=== PATIENT | male | born 1965 | race Caucasian/White ===

== ENCOUNTER 2024-04-12 10:25 | Inpatient (IN) ==
--- NOTE | 2024-04-12 10:59 | XRay Report ---
XR chest 1V portable CLINICAL HISTORY: Sepsis COMPARISON STUDY: No previous studies for comparison. FINDINGS: Lung volumes are normal. Lungs are clear. There is no pneumothorax or pleural effusion. Car diac size is at the upper limits of normal. Mediastinal contours are normal. There is no evidence for pulmonary edema. IMPRESSION: No acute cardiopulmonary findings. ACT 112: Negative or not required by law. Electronically signed by: Agus Nieves M.D. 04/12/2024 10:58 AM
--- NOTE | 2024-04-12 11:12 | Emergency Department Note ---
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 His symptoms initially started in the middle of February. He was having night sweats at that time. Symptoms have abated in regards to night sweats after taking 10 days of doxycycline. He was called in additional prescription of 14 days of doxycycline as he was called by our ER after the results of his testing which showed +Q fever. He took a total of 7 days of this new prescription. He notes he is very weak and worn down. No swollen joints. No headaches or change in vision. Admits to pain all over and this is worse over the past several days. Pain in the joints are generally worse at night. Denies any dysuria, urgency, or frequency. No cough or congestion. No belly pain. No other exacerbating or remitting factors. ADDITIONAL HISTORY OBTAINED: Per HPI Chronic Medical/Social Conditions Affecting Care: Per HPI PAST MEDICAL HISTORY:See Below PAST SURGICAL HISTORY:See Below FAMILY HISTORY:See Below SOCIAL HISTORY:See Below HOME MEDICATIONS:See Below ALLERGIES:See Below VITALS:See Below PHYSICAL EXAMINATION: GENERAL: Sitting up in bed, alert, well appearing, well nourished, no distress, non-toxic EYE EXAM: normal conjunctiva. PERRL and EOM's grossly intact. OROPHARYNX: no exudate, no erythema, lips, buccal mucosa, and tongue normal and mucous membranes are moist NECK: supple, no nuchal rigidity, no adenopathy, non-tender LUNGS: Clear to auscultation. Normal chest wall mechanics HEART: no murmurs, S1 normal and S2 normal ABDOMEN: abdomen soft, non-tender, normo-active bowel sounds, no masses, no rebound or guarding. BACK: Back is symmetrical on inspection and there is no deformity, no midline tenderness, no CVA tenderness. SKIN: no rashes and no bruising UPPER EXTREMITIES: upper extremities are grossly normal. LOWER EXTREMITIES: No pitting edema. NEURO EXAM: Normal sensorium, cranial nerves II-XII grossly intact, normal speech, no gross weakness of arms, no gross weakness of legs. No drift. Finger to nose intact. Gross sensation intact. MEDICAL DECISION MAKING: Patient is a 58-year-old male who presents ER for above-stated complaint. 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 IV was established blood work is obtained. Labs show mild leukocytosis 11.6 thousand. No significant anemia. BMP normal LFTs bilirubin is unremarkable. Lactic acid was 1.9. Troponin was negative. [place] normal. UA clean. Consulted with infectious disease and they did agree with admission and holding on antibiotics still to do a formal consult. I spoke with the [facility] infectious disease service. Patient was given a dose of Bactrim while here in the ER. He was updated bedside. He was discussed with the hospitalist for further evaluation management treatment. Consults/Care Managements Discussions: Per [facility] Triage Nursing notes reviewed. Limited review of prior medical records performed Vital Signs: reviewed and remarkable for no significant abnormalities Differential diagnosis: Differential diagnosis includes etiologies such as sepsis, UTI, pneumonia, metabolic, electrolyte abnormalities, cardiac sources, intracerebral event, toxicologic, neurological, as well as others were entertained. ER treatment provided: See below Diagnostics interpreted by me include EKG and cardiac monitoring as listed below: -Cardiac Monitoring: An order was placed for continuous cardiac monitoring. The monitor shows a rate of 101 with sinus rhythm. -ECG: Sinus tachycardia rate of 111 Normal axis No PVCs QTc 462 -Laboratory studies:Interpreted by me as stated above in MDM and shown below. Imaging studies: Xrays: As interpreted by me: Portable AP upright 1 view of the chest shows no focal infiltrate CTs show: none Procedures:none Critical Care: None Past Med/Surg History Problem List (Updated 04/12/24 @ 14:29 by Miah Dowling DO) Arthralgia (Acute) Myalgia (Acute) Atrial tachycardia (Acute) Edema Q fever (Acute) Social History Smoking Status: Never smoker Feels Safe at Home: Yes Allergies Allergies Allergy/AdvReac Type Severity Reaction Status Date / Time No Known Allergies Allergy Unknown Verified 04/12/24 13:31 Home Meds Home Medications Medication Instructions Recorded Confirmed multivitamin 1 tab PO DAILY #0 tabs 09/30/12 04/12/24 Previous Rx's Medication Instructions Recorded doxycycline hyclate 100 mg capsule 100 mg PO BID 14 days #28 caps 04/05/24 Results & Data (ED) Vital Signs Vital Signs - 24 hr 04/12/24 10:31 04/12/24 10:58 04/12/24 10:58 Temperature 36.7 C Temperature Source Temporal Artery Scan Pulse Rate 120 H Pulse Rate [Apical] 106 H Respiratory Rate 19 20 20 Blood Pressure 138/100 Blood Pressure [Left Arm] 153/109 H Blood Pressure Mean 112 Blood Pressure Mean [Left Arm] 123 Pulse Oximetry 97 95 95 Oxygen Delivery Method Room Air Room Air Room Air Sepsis Recent Fever Within 48 Hours No Sepsis New/Unexplained Change in Mental Status No Sepsis Action Taken by Nursing No Action Required 04/12/24 11:08 04/12/24 11:53 04/12/24 12:17 Temperature Temperature Source Pulse Rate Pulse Rate [Apical] 102 H 90 80 Respiratory Rate 20 18 20 Blood Pressure Blood Pressure [Left Arm] 149/109 H 157/101 H 143/98 H Blood Pressure Mean Blood Pressure Mean [Left Arm] 122 119 113 Pulse Oximetry 94 95 95 Oxygen Delivery Method Room Air Sepsis Recent Fever Within 48 Hours Sepsis New/Unexplained Change in Mental Status Sepsis Action Taken by Nursing 04/12/24 13:42 Temperature Temperature Source Pulse Rate Pulse Rate [Apical] 101 H Respiratory Rate 20 Blood Pressure Blood Pressure [Left Arm] 165/112 H Blood Pressure Mean Blood Pressure Mean [Left Arm] 129 Pulse Oximetry 97 Oxygen Delivery Method Sepsis Recent Fever Within 48 Hours Sepsis New/Unexplained Change in Mental Status Sepsis Action Taken by Nursing Laboratory Data 04/12/24 11:02 04/12/24 11:02 Lab Results 04/12/24 04/12/24 Range/Units 11:02 11:52 WBC 11.63 H (4.8-10.8) K/ul RBC 4.99 (4.70-6.10) M/uL Hgb 15.4 (14.0-18.0) g/dl Hct 44.9 (42.0-52.0) % MCV 90.0 (80.0-100.0) fL MCH 30.9 (25.0-34.0) pg MCHC 34.3 (32.0-36.0) g/dL RDW Std Deviation 38.7 (36.4-46.3) fL RDW Coeff of Florencia 11.9 (11.5-14.5) % Plt Count 371 (130-400) K/uL MPV 9.0 L (9.4-12.4) fL Immature Gran % (Auto) 0.5 % Neut % (Auto) 87.9 % Lymph % (Auto) 5.1 % Orange % (Auto) 5.5 % Eos % (Auto) 0.7 % Baso % (Auto) 0.3 % Neut # (Auto) 10.23 H (1.40-6.50) K/uL Lymph # (Auto) 0.59 L (1.20-3.40) K/uL Orange # (Auto) 0.64 H (0.11-0.59) K/uL Eos # (Auto) 0.08 (0.00-0.50) K/uL Baso # (Auto) 0.03 (0.00-0.20) K/uL Immature Gran # (Auto) 0.06 (0.01-0.20) K/uL Sodium 136 (136-145) mmol/L Potassium 3.9 (3.5-5.1) mmol/L Chloride 101 (98-107) mmol/L Carbon Dioxide 25 (21-32) mmol/L Anion Gap 10 (3-11) BUN 13 (6-23) mg/dl Creatinine 0.85 (0.6-1.4) mg/dl Est Cr Clr Drug Dosing 100.9 ml/min eGFR 100.72 BUN/Creatinine Ratio 15.3 (10-20) Glucose 115 H (70-99(Fasting)) mg/dl Lactate 1.9 (0.4-2.0) mmol/L Calcium 9.5 (8.6-10.3) mg/dl Magnesium 1.9 (1.7-2.4) mg/dl Total Bilirubin 0.6 (0.2-1.0) mg/dl Direct Bilirubin 0.1 (0-0.2) mg/dl AST 18 (13-39) U/L ALT 18 (7-52) U/L Alkaline Phosphatase 91 (34-104) U/L Troponin I High Sens 8.8 (0-20) pg/ml Total Protein 7.4 (6.0-8.3) gm/dl Albumin 3.7 (3.4-5.0) gm/dl Procalcitonin 0.05 (0-0.5) ng/ml Urine Color Yellow Urine Appearance Clear (Clear) Urine pH 5.5 (4.5-7.5) Ur Specific [place] 1.012 (1.000-1.030) Urine Protein Negative (Negative) Urine Glucose (UA) Negative (Negative) Urine Ketones 2+ H (Negative) Urine Blood Negative (Negative) Urine Nitrite Negative (Negative) Urine Bilirubin Negative (Negative) Urine Urobilinogen Negative (Negative) Ur Leukocyte Esterase Negative (Negative) Administered Medications Discontinued Medications Sodium Chloride (Nss) 1,000 mls @ 999 mls/hr IV .Q1H1M GOOD Stop: 04/12/24 13:45 Last Infusion: 04/12/24 13:19 Dose: Infused Documented By: Admin: 04/12/24 12:16 Dose: 999 mls/hr Documented By: Infusion: 04/12/24 12:16 Dose: Infused Documented By: Admin: 04/12/24 11:47 Dose: 999 mls/hr Documented By: ABA Ketorolac Tromethamine (Ketorolac Tromethamine 15 Mg/Ml Vial) 10 mg IV NOW ONE Stop: 04/12/24 11:35 Last Admin: 04/12/24 11:47 Dose: 10 mg Documented By: ABA Trimethoprim/Sulfamethoxazole (Sulfamethoxazole/Trimethoprim Ds 800/160mg Tab) 1 tab PO NOW ONE Stop: 04/12/24 12:27 Last Admin: 04/12/24 12:36 Dose: 1 tab Documented By: ABA Imaging Data Radiologist's Impression: Chest X-Ray 04/12/24 10:41 XR chest 1V portable CLINICAL HISTORY: Sepsis COMPARISON STUDY: No previous studies for comparison. FINDINGS: Lung volumes are normal. Lungs are clear. There is no pneumothorax or pleural effusion. Cardiac size is at the upper limits of normal. Mediastinal contours are normal. There is no evidence for pulmonary edema. IMPRESSION: No acute cardiopulmonary findings. ACT 112: Negative or not required by law. Electronically signed by: Agus Nieves M.D. 04/12/2024 10:58 AM Discharge Plan Visit Data Chief Complaint: Referred by Doctor Stated Complaint: LYMS/ON ANTIBIOTIC, NOT WORKING, DOC REF ED Provider: Miah Dowling Discharge Problem: Q fever, Atrial tachycardia, Myalgia, Arthralgia Forms Stand Alone Forms: My [facility] Prescriptions Prescriptions: No Action multivitamin Tablet 1 tab PO DAILY Qty: 0 doxycycline hyclate 100 mg capsule 100 mg PO BID 14 Days Qty: 28 0RF Rx Instructions: Start Date 04/05/24 x14 day supply Referrals Referrals: PCP,NO [Primary Care Provider] -
[2024-04-12 11:20] LABS: Basophils # (auto) 0.03 K/uL (0.00-0.20); Basophils % (auto) 0.3 %; Eosinophils # (auto) 0.08 K/uL (0.00-0.50); Eosinophils % (auto) 0.7 %; Hematocrit (blood only) 44.9 % (42.0-52.0); Hemoglobin 15.4 g/dl (14.0-18.0); Immature Granulocytes # (auto) 0.06 K/uL (0.01-0.20); Immature Granulocytes % (auto) 0.5 %; Lymphocytes # (auto) 0.59 K/uL (1.20-3.40); Lymphocytes % (auto) 5.1 %; Mean Corpuscular Hemoglobin 30.9 pg (25.0-34.0); Mean Corpuscular Hgb Conc 34.3 g/dL (32.0-36.0); Monocytes # (auto) 0.64 K/uL (0.11-0.59); Monocytes % (auto) 5.5 %; Neutrophils # (auto) 10.23 K/uL (1.40-6.50); Neutrophils % (auto) 87.9 %; Platelet Count 371 K/uL (130-400); RDW Coefficient of Variation 11.9 % (11.5-14.5); RDW Standard Deviation 38.7 fL (36.4-46.3); Red Blood Count 4.99 M/uL (4.70-6.10); White Blood Count 11.63 K/ul (4.8-10.8)
[2024-04-12 11:38] LABS: Albumin Level 3.7 gm/dl (3.4-5.0); BUN Creatinine Ratio 15.3 (10-20); Bilirubin Direct 0.1 mg/dl (0-0.2); Bilirubin,Total 0.6 mg/dl (0.2-1.0); Calcium 9.5 mg/dl (8.6-10.3); Creatinine Clr Calc Pharmacy 100.9 ml/min; Magnesium 1.9 mg/dl (1.7-2.4); Potassium 3.9 mmol/L (3.5-5.1); Total Protein 7.4 gm/dl (6.0-8.3)
[2024-04-12 11:44] LABS: Troponin I High Sensitivity 8.8 pg/ml (0-20)
[2024-04-12] MEDS: KETOROLAC TROMETHAMINE 15 MG/ML VIAL IV ONE (11:47)
[2024-04-12] MEDS: SODIUM CHLORIDE 0.9% 1,000 ML IV SCH (11:47)
[2024-04-12 12:09] LABS: Appearance Urine Clear (Clear); Bilirubin Urine Negative (Negative); Blood Urine Negative (Negative); Color Urine Yellow; Glucose Urine UA Negative (Negative); Ketones Urine 2+ (Negative); Leukocyte Esterase Urine Negative (Negative); Nitrite Urine Negative (Negative); Protein Urine Negative (Negative); Specific Gravity Urine 1.012 (1.000-1.030); Urobilinogen Urine Negative (Negative); pH Urine 5.5 (4.5-7.5)
[2024-04-12] MEDS: SULFAMETHOXAZOLE/TRIMETHOPRIM DS 800/160MG TAB PO ONE (12:36)
--- NOTE | 2024-04-12 13:52 | History & Physical Report ---
Date of Service April 12, 2024 Assessment & Plan (1) Q fever: (2) Edema: Plan Assessment and plan: Myalgias Lower extremity edema Recent Q fever Bilateral hand swelling and bilateral ankle swelling on exam Recently treated with 10 days of Doxy for acute fever with improvement Off antibiotics for 4 days, symptoms returned, currently completed 17 days of Doxy Received 1 dose of p.o. Bactrim in ED Will initiate autoimmune workup with joint swelling Recheck Lyme screen/EBV/CMV/Anaplasma/Q fever Check RF/anti-CCP/ESR/CRP/YONAS, suspicion for possible lupus with reddened rash on face After discussion with ID, recommended holding any further antibiotics and official ID consult Check echo with lower extremity swelling, IV Toradol for joint pain A total of 60 minutes was spent on chart review/reviewing diagnostic imaging/facilitating plan of care/discussion with consultants Full code DVT prophylaxis: Lovenox History of Present Illness Chief Complaint: Aching joints, lower extremity edema, hand swelling Primary Care Provider: NO PCP The patient is a 58-year-old male with no significant past medical history, current adam, who presents to the ED on 04/12/2024 with complaints of swelling to his bilateral hands to the point where he cannot make a fist and bilateral lower extremity swelling of his ankles. Patient was diagnosed with Q fever approximately 3 weeks ago. He completed a 10-day course of doxycycline with improvement in symptoms. He was off the doxycycline for about 4 days and his symptoms returned. He reports completing a total of 17 days of Doxy and his symptoms are not improving. On exam, he denies any nausea/vomiting/fever/chills/chest pain. He denies any cardiac history. Has never seen a picture engraver in the past. Denies having any issues with hand swelling or autoimmune disease in the past. Denies any abdominal pain or diarrhea. Denies any recent tick bites or recent travel. Patient's chest x-ray was negative On arrival to the ED, labs were fairly unremarkable. His EKG has no acute changes. He was given a dose of Doxy and Bactrim in the ER and will be admitted for further workup. ER physician spoke with infectious disease I recommended holding off on further antibiotics at this time and an official ID consult Allergies Allergy/AdvReac Type Severity Reaction Status Date / Time No Known Allergies Allergy Unknown Verified 04/12/24 13:31 Home Medications Medication Instructions Recorded Confirmed Type multivitamin 1 tab PO DAILY #0 tabs 09/30/12 04/12/24 History doxycycline hyclate 100 mg capsule 100 mg PO BID 14 days #28 caps 04/05/24 04/12/24 Rx Past Med/Surg History Problem List (Updated 04/12/24 @ 13:45 by DANIEL Concepcion) Edema Q fever Social History Smoking Status: Never smoker Feels Safe at Home: Yes Review of Systems Review of Systems: All systems reviewed & are unremarkable except as noted in HPI & below Physical Exam Constitutional: WD/WN, vitals as above Eyes: PERRL, conjunctivae normal, anicteric sclerae ENMT: external ear and nose normal, oropharynx normal Neck: trachea midline, no thyromegaly Respiratory: normal respiratory effort, lungs clear to auscultation Cardiovascular: RRR, no murmur, no edema (Bilateral hand and ankle swelling) Gastrointestinal (Abdomen): normal bowel sounds, soft, nontender, no hepatosplenomegaly Musculoskeletal: no cyanosis or clubbing, extremities motor strength 5/5 Skin: no rashes, warm and dry (Bilateral redness on cheeks) Neurologic: PERRL, EOMI, accommodation nl, no face palsy, no dysarthria Psychiatric: A+Ox3, euthymic affect Lymphatic: no cervical or axillary lymphadenopathy Results & Data Results & Data Vital Signs (Past 12 Hours) Vital Signs Temp Pulse Pulse Resp BP BP Pulse Ox 04/12/24 12:17 80 20 143/98 H 95 04/12/24 11:53 90 18 157/101 H 95 04/12/24 11:08 102 H 20 149/109 H 94 04/12/24 10:58 20 95 04/12/24 10:58 106 H 20 153/109 H 95 04/12/24 10:31 36.7 C 120 H 19 138/100 97 O2 Del Method 04/12/24 12:17 04/12/24 11:53 04/12/24 11:08 Room Air 04/12/24 10:58 Room Air 04/12/24 10:58 Room Air 04/12/24 10:31 Room Air Diagnostic Findings Laboratory Results WBC 11.63 K/ul (4.8-10.8) H 04/12/24 11:02 RBC 4.99 M/uL (4.70-6.10) 04/12/24 11:02 Hgb 15.4 g/dl (14.0-18.0) 04/12/24 11:02 Hct 44.9 % (42.0-52.0) 04/12/24 11:02 MCV 90.0 fL (80.0-100.0) 04/12/24 11:02 MCH 30.9 pg (25.0-34.0) 04/12/24 11:02 MCHC 34.3 g/dL (32.0-36.0) 04/12/24 11:02 RDW Std Deviation 38.7 fL (36.4-46.3) 04/12/24 11:02 RDW Coeff of Florencia 11.9 % (11.5-14.5) 04/12/24 11:02 Plt Count 371 K/uL (130-400) 04/12/24 11:02 MPV 9.0 fL (9.4-12.4) L 04/12/24 11:02 Immature Gran % (Auto) 0.5 % 04/12/24 11:02 Neut % (Auto) 87.9 % 04/12/24 11:02 Lymph % (Auto) 5.1 % 04/12/24 11:02 [place] % (Auto) 5.5 % 04/12/24 11:02 Eos % (Auto) 0.7 % 04/12/24 11:02 Baso % (Auto) 0.3 % 04/12/24 11:02 Neut # (Auto) 10.23 K/uL (1.40-6.50) H 04/12/24 11:02 Lymph # (Auto) 0.59 K/uL (1.20-3.40) L 04/12/24 11:02 [place] # (Auto) 0.64 K/uL (0.11-0.59) H 04/12/24 11:02 Eos # (Auto) 0.08 K/uL (0.00-0.50) 04/12/24 11:02 Baso # (Auto) 0.03 K/uL (0.00-0.20) 04/12/24 11:02 Immature Gran # (Auto) 0.06 K/uL (0.01-0.20) 04/12/24 11:02 Sodium 136 mmol/L (136-145) 04/12/24 11:02 Potassium 3.9 mmol/L (3.5-5.1) 04/12/24 11:02 Chloride 101 mmol/L (98-107) 04/12/24 11:02 Carbon Dioxide 25 mmol/L (21-32) 04/12/24 11:02 Anion Gap 10 (3-11) 04/12/24 11:02 BUN 13 mg/dl (6-23) 04/12/24 11:02 Creatinine 0.85 mg/dl (0.6-1.4) 04/12/24 11:02 Est Cr Clr Drug Dosing 100.9 ml/min 04/12/24 11:02 eGFR 100.72 04/12/24 11:02 BUN/Creatinine Ratio 15.3 (10-20) 04/12/24 11:02 Glucose 115 mg/dl (70-99(Fasting)) H 04/12/24 11:02 Lactate 1.9 mmol/L (0.4-2.0) 04/12/24 11:02 Calcium 9.5 mg/dl (8.6-10.3) 04/12/24 11:02 Magnesium 1.9 mg/dl (1.7-2.4) 04/12/24 11:02 Total Bilirubin 0.6 mg/dl (0.2-1.0) 04/12/24 11:02 Direct Bilirubin 0.1 mg/dl (0-0.2) 04/12/24 11:02 AST 18 U/L (13-39) 04/12/24 11:02 ALT 18 U/L (7-52) 04/12/24 11:02 Alkaline Phosphatase 91 U/L (34-104) 04/12/24 11:02 Troponin I High Sens 8.8 pg/ml (0-20) 04/12/24 11:02 Total Protein 7.4 gm/dl (6.0-8.3) 04/12/24 11:02 Albumin 3.7 gm/dl (3.4-5.0) 04/12/24 11:02 Procalcitonin 0.05 ng/ml (0-0.5) 04/12/24 11:02 Urine Color Yellow 04/12/24 11:52 Urine Appearance Clear (Clear) 04/12/24 11:52 Urine pH 5.5 (4.5-7.5) 04/12/24 11:52 Ur Specific [place] 1.012 (1.000-1.030) 04/12/24 11:52 Urine Protein Negative (Negative) 04/12/24 11:52 Urine Glucose (UA) Negative (Negative) 04/12/24 11:52 Urine Ketones 2+ (Negative) H 04/12/24 11:52 Urine Blood Negative (Negative) 04/12/24 11:52 Urine Nitrite Negative (Negative) 04/12/24 11:52 Urine Bilirubin Negative (Negative) 04/12/24 11:52 Urine Urobilinogen Negative (Negative) 04/12/24 11:52 Ur Leukocyte Esterase Negative (Negative) 04/12/24 11:52 Impressions Chest X-Ray 04/12/24 10:41 XR chest 1V portable CLINICAL HISTORY: Sepsis COMPARISON STUDY: No previous studies for comparison. FINDINGS: Lung volumes are normal. Lungs are clear. There is no pneumothorax or pleural effusion. Cardiac size is at the upper limits of normal. Mediastinal contours are normal. There is no evidence for pulmonary edema. IMPRESSION: No acute cardiopulmonary findings. ACT 112: Negative or not required by law. Electronically signed by: Agus Nieves M.D. 04/12/2024 10:58 AM Supervising Physician Co-Signing Physician Notes 58-year-old male with PMH of recent diagnosis of Q fever status post antibiotic treatment [10 days of Doxy followed by 1 week Followed by almost 1 week of Doxy as of today] who had initially night sweats and chills which did improve with antibiotic but he had generalized joint pain since about 1 month time which has not improved at all and has not worsened as well. Per patient he had joint pain when he wakes up, by the day joint pain gets better and towards the night they are even worse. 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 Rule out other tickborne illness, possible Q fever complication, rule out rheuma toid disease: Sent tickborne serology again (recently done), RF, anti-CCP, ESR, CRP, YONAS. Stop antibiotic. Consult ID. Possible rheumatology follow-up as outpatient depending on above results. Pain Mx for now. Of note, there was no tenderness on palpation but bearable/painful range of motion at multiple joints bilaterally. On exam: GENERAL: Alert and oriented x3. NAD, on RA. HEENT: No pallor, no icterus. Pupils equal, round and reactive to light. Oral mucosa moist. NECK: No JVD, no neck masses. HEART: S1 and S2 heard. Regular rate and rhythm. No murmur, no gallop. RESPIRATORY SYSTEM: Normal AP diameter. No accessory muscle use. No wheezing, no crackles. ABDOMEN: Soft, bowel sounds present, nontender, no distention. CENTRAL NERVOUS SYSTEM: No facial droop. Speech is clear. Obeys simple commands. Moves extremities. EXTREMITIES: No edema, no erythema seen. b/l painful ROM noted at various joints, symmetrical, no tenderness on palpation. Pain was bearable on exam. Some swelling b/l ankle and hand noted. I have seen and examined the patient and have discussed the case with the provider above. I agree with the assessment and plan as stated. Time spent: 35 min.
[2024-04-12 14:42] LABS: C Reactive Protein 7.84 mg/dl (0-0.5)
[2024-04-12] MEDS: KETOROLAC TROMETHAMINE 15 MG/ML VIAL IV PRN (19:23)
[2024-04-12 20:22] LABS: Adenovirus PCR Not Detected (NotDetected); Bordetella parapertussis PCR Not Detected (NotDetected); Bordetella pertussis PCR Not Detected (NotDetected); Chlamydia pneumoniae PCR Not Detected (NotDetected); Coronavirus 229E PCR Not Detected (NotDetected); Coronavirus CoV-2 (COVID19)PCR Not Detected (NotDetected); Coronavirus HKU1 PCR Not Detected (NotDetected); Coronavirus NL63 PCR Not Detected (NotDetected); Coronavirus OC43PCR Not Detected (NotDetected); Human Metapneumovirus PCR Not Detected (NotDetected); Influenza A PCR Not Detected (NotDetected); Influenza B PCR Not Detected (NotDetected); Mycoplasma pneumoniae PCR Not Detected (NotDetected); Parainfluenza Virus 1 PCR Not Detected (NotDetected); Parainfluenza Virus 2 PCR Not Detected (NotDetected); Parainfluenza Virus 3 PCR Not Detected (NotDetected); Parainfluenza Virus 4 PCR Not Detected (NotDetected); Respiratory Syncytial VirusPCR Not Detected (NotDetected); Rhinovirus/Enterovirus PCR Not Detected (NotDetected)
[2024-04-12] MEDS: ACETAMINOPHEN 1,000 MG/100 ML VIAL IV STA (21:57)
[2024-04-13] MEDS: oxyCODONE HCL IR 5 MG TAB (IMMEDIATE RELEASE) PO PRN (01:58)
[2024-04-13 07:21] LABS: A calco-baum cmplx NotReported Not Detected (NotDetected); Bact fragilis Not Reported Not Detected (NotDetected); Blood Culture Id Panel PCR Panel Negative (NotDetected); C auris Not Reported Not Detected (NotDetected); Calbicans Not Reported Not Detected (NotDetected); Candida glabrata Not Reported Not Detected (NotDetected); Candida krusei Not Reported Not Detected (NotDetected); Cneoformans/gatti Not Reported Not Detected (NotDetected); Cparapsilosis Not Reported Not Detected (NotDetected); E cloacae compx Not Reported Not Detected (NotDetected); Efaecalis Not Reported Not Detected (NotDetected); Efaecium Not Reported Not Detected (NotDetected); Enterobacterales Not Reported Not Detected (NotDetected); Escherichia coli Not Reported Not Detected (NotDetected); H influenzae Not Reported Not Detected (NotDetected); K aerogenes Not Reported Not Detected (NotDetected); Koxytoca Not Reported Not Detected (NotDetected); Kpneumoniae grp Not Reported Not Detected (NotDetected); Lmonocyt Not Reported Not Detected (NotDetected); N meningitidis Not Reported Not Detected (NotDetected); P aeruginosa Not Reported Not Detected (NotDetected); Proteus spp Not Reported Not Detected (NotDetected); Salmonella spp Not Reported Not Detected (NotDetected); Staph lugdunensis Not Reported Not Detected (NotDetected); Staph spp. Not Reported Not Detected (NotDetected); Staphaureus Not Reported Not Detected (NotDetected); Staphepi Not Reported Not Detected (NotDetected); Stenmaltophilia Not Reported Not Detected (NotDetected); Strep agal(GrpB) Not Reported Not Detected (NotDetected); Strep pneum Not Reported Not Detected (NotDetected); Strep pyog (GrpA) Not Reported Not Detected (NotDetected); Strep spp Not Reported Not Detected (NotDetected)
[2024-04-13 08:00] LABS: Hematocrit (blood only) 41.6 % (42.0-52.0); Hemoglobin 14.1 g/dl (14.0-18.0); Mean Corpuscular Hemoglobin 30.8 pg (25.0-34.0); Mean Corpuscular Hgb Conc 33.9 g/dL (32.0-36.0); Mean Corpuscular Volume 90.8 fL (80.0-100.0); Mean Platelet Volume 8.9 fL (9.4-12.4); Platelet Count 333 K/uL (130-400); RDW Coefficient of Variation 11.8 % (11.5-14.5); RDW Standard Deviation 38.9 fL (36.4-46.3); Red Blood Count 4.58 M/uL (4.70-6.10); White Blood Count 8.53 K/ul (4.8-10.8)
[2024-04-13] MEDS: amLODIPine BESYLATE 5 MG TAB PO SCH (08:10)
[2024-04-13] MEDS: MULTIVITAMIN TAB PO SCH (08:10)
[2024-04-13] MEDS: ACETAMINOPHEN 325 MG TAB PO PRN (08:10)
[2024-04-13] MEDS: ENOXAPARIN INJ 40 MG/0.4 ML SYR SQ SCH (08:10)
[2024-04-13 08:19] LABS: Albumin Level 3.3 gm/dl (3.4-5.0); BUN Creatinine Ratio 14.1 (10-20); Bilirubin,Total 0.5 mg/dl (0.2-1.0); Calcium 8.9 mg/dl (8.6-10.3); Creatinine Clr Calc Pharmacy 100.9 ml/min; Globulin 3.2 gm/dl (2.5-4.0); Total Protein 6.5 gm/dl (6.0-8.3)
[2024-04-13] MEDS: PIPERACILLIN/TAZOBACTAM 4.5 GM/100 ML BAG IV SCH (09:22)
[2024-04-13] MEDS: PIPERACILLIN/TAZOBACTAM 4.5 GM/100 ML BAG IV STA (09:22)
--- NOTE | 2024-04-13 13:16 | Hospitalist Progress Note ---
Date of Service April 13, 2024 Assessment & Plan (1) Q fever: (2) Gram-positive bacteremia: (3) Polyarthritis due to other bacteria: Plan Patient with significant polyarthritis presumably due to Q fever. Possible gram-positive bacteremia versus contaminant Empiric antibiotics until infectious disease evaluation Monitor blood cultures Admission and Anticipated Discharge Date Admission Date: April 12, 2024 Subjective Patient states that already his knees and hands seem to be feeling better. He is moving better. Anxious to get home. Physical Exam Physical Exam: Constitutional: Alert, nontoxic, ambulating in room HEENT: Mucous membranes moist. Lungs: Clear to auscultation, decreased, no wheezes rales or rhonchi CV: S1-S2, regular Abdomen: Soft, nontender, nondistended Extremities: No significant edema Musculoskeletal: Bilateral hands have swelling, synovitis. Neuro: No focal deficits Psych: Cooperative, normal mood Results & Data Results & Data Vital Signs (Past 12 Hours) Vital Signs Temp Pulse Pulse Resp BP Pulse Ox O2 Del Method 04/13/24 11:23 36.5 C 124 H 20 126/87 96 Room Air 04/13/24 08:27 90 04/13/24 08:03 36.6 C 99 H 18 149/98 H 96 Room Air 04/13/24 04:08 36.6 C 97 H 20 170/100 H 94 Room Air Laboratory Results Reviewed imaging, laboratory and diagnostic studies. Pertinent findings as below. 1 of 2 blood cultures positive for gram-positive bacilli WBCs 8.5 Hemoglobin 14.1 Platelets 333 Electrolytes stable Creatinine 0.85 Echocardiogram shows normal ejection fraction 55 to 60%, no no wall motion abnormality, no valvular dysfunction of significance.
--- NOTE | 2024-04-13 14:58 | Infectious Disease Consult ---
Date of Service April 13, 2024 Telehealth Information I performed this visit using a real-time telehealth connection between my location and the patients location ([facility]). After connecting through interactive tele-video, patient was identified by name and date of and/or wristband check.Patient (or authorized healthcare automobile sales representative) was informed that this was a telemedicine visit and it was being conducted confidentially over secure lines. My office door was closed and no one else was present in the room with me.Patient (or authorized healthcare automobile sales representative) provided consent to proceed with the visit, expressed an understanding of privacy and security of the telemedicine visit, and gave permission to have a hospital automobile sales representative in the room in order to assist with the visit and to conduct portions of the visit, as needed. I informed the patient (or authorized healthcare automobile sales representative) that I reviewed their record and presented the opportunity for them to ask any questions regarding the visit today. The patient agreed to participate. 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: Plan: Consider rheumatological evaluation Plan Patient who was diagnosed with Q fever and has been treated for 14 days with doxycycline but his symptoms which had initially improved have now worsened with joint pain and swelling to hands ,ankles and feet .He has been adequately treated for uncomplicated Q fever (TTE negative) and I am concerned his symptoms maybe related to a non infectious cause such as rheumatological .Follow up his blood cultures which likely represent contamination but would repeat to document clearance If he is hemodynamically stable consider discontinuing zosyn .Thank you for allowing us to participate in the care of this patient ID will continue to follow History of Present Illness History of Present Illness 58-y/o M no significant past medical history, current adam, who presented to the ED on 04/12/2024 with complaints of swelling to his bilateral hands to the point where he cannot make a fist and bilateral lower extremity swelling of his ankles. Patient was diagnosed with Q fever approximately 3 weeks ago and he completed a 10-day course of doxycycline with improvement in symptoms. He was off the doxycycline for about 4 days and his symptoms returned. He then completed a total of 17 days of Doxy and his symptoms are not improving. On exam, he denies any nausea/vomiting/fever/chills/chest pain. Denies any recent tick bites or recent travel. Patient's chest x-ray was negative.On arrival to the ED, labs were fairly unremarkable. His EKG has no acute changes.He was given a dose of Doxy and Bactrim in the ER and will be admitted for further work up .His blood cultures have grown GP bacteria from 05/31 BT and he is on zosyn Allergies Allergy/AdvReac Type Severity Reaction Status Date / Time No Known Allergies Allergy Unknown Verified 04/12/24 13:31 Home Medications Medication Instructions Recorded Confirmed Type multivitamin 1 tab PO DAILY #0 tabs 09/30/12 04/12/24 History doxycycline hyclate 100 mg capsule 100 mg PO BID 14 days #28 caps 04/05/24 04/12/24 Rx Patient History Social History Smoking Status: Never smoker Hx Alcohol Use: Yes Alcohol type: beer Hx Substance Use: No Preferred Language: Nepali Communication Ability: Effective Aircraft Systems Technician Required: No Beliefs That Will Affect Care: None Current Living Situation: Parent Other Information That Helps Us Care for You: No Feels Safe at Home: Yes Safety Concerns: Feels Safe At This Time Assistive Devices: None Review of Systems painful swelling to hands and feet Physical Exam Patient awake alert and oriented no respiratory distress Results & Data Vital Signs (Past 12 Hours) Vital Signs Temp Pulse Pulse Resp BP Pulse Ox O2 Del Method 04/13/24 11:23 36.5 C 124 H 20 126/87 96 Room Air 04/13/24 08:27 90 04/13/24 08:03 36.6 C 99 H 18 149/98 H 96 Room Air 04/13/24 04:08 36.6 C 97 H 20 170/100 H 94 Room Air Laboratory Results No leukocytosis Diagnostic Findings Blood Culture Aerobic Preliminary 04/13/24-724 Organism 1 Gram positive bacilli Sens No Sensitivities to Follow Blood Culture PCR Panel If viewing in EMR, results available under LAB Serology tab
--- NOTE | 2024-04-13 16:26 | Electrocardiogram Report ---
Test Reason : Blood Pressure : */* mmHG Vent. Rate : 111 BPM Atrial Rate : 111 BPM P-R Int : 142 ms QRS Dur : 70 ms QT Int : 340 ms P-R-T Axes : 56 26 13 degrees QTcB Int : 462 ms Sinus tachycardia Left atrial enlargement Borderline ECG No previous ECGs available Confirmed by Estevan Pineda ([id number]) on 04/13/2024 4:26:12 PM Referred By: REFERRED SELF Confirmed By: Estevan Pineda
[2024-04-14 03:41] VITALS: RESP 20
[2024-04-14] MEDS: amLODIPine BESYLATE 5 MG TAB PO SCH (09:40)
[2024-04-14] MEDS: DICLOFENAC SODIUM 75 MG TABCR PO SCH (09:41)
[2024-04-14 11:32] VITALS: BP 132/94; TEMP 97.7; O2SAT 94
--- NOTE | 2024-04-14 13:39 | Discharge Summary ---
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 Patient had been treated for acute fever approximately 3 weeks ago. Completed a course of doxycycline and is on a second course of doxycycline. Due to the patient's symptoms was referred for further evaluation. Patient was admitted to the hospital. Initially was recommended by phone conversation to observe off of any additional antibiotics. By the following mornings patient still having a fairly significant amount of joint pain. Sed rate was elevated. 1 of 2 blood cultures did turn positive for gram-positive bacilli. Formal infectious disease consultation was obtained. Additional PCR testing performed on blood culture did not show evidence of any detection of a pathological infection. Infectious disease evaluation was that this was most likely a contaminant. They recommend possible rheumatological evaluation. Infectious disease also did not recommend any additional treatment for his Q fever. He had completed a full course of therapy. 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 The patient was given a trial of Voltaren. He had almost immediate improvement in his symptoms. Finalized initial blood culture was very consistent with a bacillus contamination and not a true bacterial blood infection. Patient will be discharged home on Voltaren with tapering over the next 5 to 10 days. Some Protonix for GI protection. Anticipate he will see steady improvement with treatment of NSAIDs. He can follow-up with his PCP. Here in the hospital noted to be somewhat hypertensive. Amlodipine was started will continue that he will follow-up with his PCP for ongoing blood pressure management. Notes For Next Care Provider May need additional management of his blood pressure Medication Changes From Visit Voltaren for reactive polyarthritis Amlodipine for BP control Admission HPI Per Admitting Provider The patient is a 58-year-old male with no significant past medical history, current adam, who presents to the ED on 04/12/2024 with complaints of swelling to his bilateral hands to the point where he cannot make a fist and bilateral lower extremity swelling of his ankles. Patient was diagnosed with Q fever approximately 3 weeks ago. He completed a 10-day course of doxycycline with improvement in symptoms. He was off the doxycycline for about 4 days and his symptoms returned. He reports completing a total of 17 days of Doxy and his symptoms are not improving. On exam, he denies any nausea/vomiting/fever/chills/chest pain. He denies any cardiac history. Has never seen a set key driver in the past. Denies having any issues with hand swelling or autoimmune disease in the past. Denies any abdominal pain or diarr hea. Denies any recent tick bites or recent travel. Patient's chest x-ray was negative On arrival to the ED, labs were fairly unremarkable. His EKG has no acute changes. He was given a dose of Doxy and Bactrim in the ER and will be admitted for further workup. ER physician spoke with infectious disease I recommended holding off on further antibiotics at this time and an official ID consult Admission Exam Per Admitting Provider See H&P Discharge Exam Constitutional: Alert, nontoxic, no acute distress HEENT: Mucous membranes moist. Lungs: Clear to auscultation, decreased, no wheezes rales or rhonchi CV: S1-S2, regular Abdomen: Soft, nontender, nondistended Extremities: No significant edema Musculoskeletal: Hands less swollen, able to make a fist better, no redness, no warmth, knee tenderness significantly improved to palpation Neuro: No focal deficits Psych: Cooperative, normal mood Updated Medication List Medication Instructions Recorded Confirmed Type multivitamin 1 tab PO DAILY #0 tabs 09/30/12 04/12/24 History doxycycline hyclate 100 mg capsule 100 mg PO BID 14 days #28 caps 04/05/24 04/12/24 Rx amlodipine 5 mg tablet (Norvasc) 10 mg (2 x 5 mg) PO QAM 30 days 04/14/24 Rx #60 tabs diclofenac sodium 75 mg See Rx Instructions .Route 04/14/24 Rx tablet,delayed release .COMPLEX #30 tabs pantoprazole 40 mg tablet,delayed 40 mg PO DAILY #30 tabs 04/14/24 Rx release (Protonix) Hospital Stay Data Consultations 04/12/24 12:38 ED Decision to Admit Stat 04/12/24 18:40 Consult Infectious Diseases Routine Diagnostic Imagining Performed Reviewed imaging, laboratory and diagnostic studies. Pertinent findings as below. Echocardiogram showed normal ejection fraction no significant wall motion abnormalities, no pulmonary pretension, refer to the full report for details WBCs 8.5 hemoglobin 14.1 Platelets 333 Electrolytes within normal limits Creatinine 0.85 C-reactive protein 7.8 Procalcitonin 0.05 Urinalysis unremarkable Rheumatoid factor, YONAS screen pending Pending Results Patient Have Any Pending Studies at Discharge: Yes Discharge Instructions Given to Patient (Per Discharging Provider) Follow-up with your PCP for ongoing monitoring of your blood pressure Total Time Total Time Spent Total Time Spent (In Minutes): 38
[2024-04-14 15:44] VITALS: PULSE 101
[2024-04-16 15:02] LABS: CMV IgM Antibody <30.00 AU/mL
[2024-04-16 15:17] LABS: EBV Nuclear Ag Antibody <18.00 U/mL
[2024-04-17 13:37] LABS: Anti Nuclear Antibody Screen NEGATIVE (NEGATIVE); Cyclic Citrullinated Pep IgG >250 UNITS; Rheumatoid Factor 120 IU/mL (<14)
[2024-04-17 15:42] LABS: Babesia microti DNA Not Detected (Not Detected)
== END 2024-04-14 16:37 | disposition home or self-care (01) | DRG 549 ==
LOC: ED 10:25 → 3E 12:57 → SUATTDRO 12:57 → 3E 16:08 → 2W 18:08